=== PATIENT | female | born 1985 | race Caucasian/White ===

== ENCOUNTER → 2020-05-24 | Outpatient (CLI) | payer SELFPAY | LOC: M LABSMTC 10:06 | PROVIDERS: ATTEND Pediatrics | DX: Z11.52 Encounter for screening for COVID-19 (principal) ==

== ENCOUNTER → 2021-05-15 | Outpatient (CLI) | payer OTHER | LOC: M WHC 09:47 | PROVIDERS: ATTEND Family Medicine | DX: Z12.31 Encounter for screening mammogram for malignant neoplasm of breast (principal); Z80.3 Family history of malignant neoplasm of breast ==

== ENCOUNTER → 2022-08-01 | Outpatient (CLI) | payer OTHER | LOC: M WHC 12:29 | PROVIDERS: ATTEND Family Medicine | DX: Z12.31 Encounter for screening mammogram for malignant neoplasm of breast (principal); Z76.89 Persons encountering health services in other specified circumstances; Z80.3 Family history of malignant neoplasm of breast ==

== ENCOUNTER → 2023-01-06 | Outpatient (CLI) | payer OTHER | LOC: M PLAIMG 15:47 | PROVIDERS: ATTEND Internal Medicine | DX: M25.40 Effusion, unspecified joint (principal); M77.32 Calcaneal spur, left foot; M25.50 Pain in unspecified joint; L40.9 Psoriasis, unspecified; Z79.899 Other long term (current) drug therapy; Z88.1 Allergy status to other antibiotic agents | CPT/HCPCS: 36415; 73030; 73110; 73130; 73610; 73630; 81001; 82570; 84156; 85025; 85652; 85730; 86140; 86160; 86162; G0463; G2212 ==

== ENCOUNTER → 2023-04-11 | Outpatient (REF) | payer OTHER | LOC: M SFHCRHEU 12:30 | PROVIDERS: ATTEND Internal Medicine | DX: L40.50 Arthropathic psoriasis, unspecified (principal) ==

== ENCOUNTER → 2023-12-02 | Outpatient (CLI) | payer OTHER | LOC: M WHC 10:29 | PROVIDERS: ATTEND Family Medicine | DX: R92.2 Inconclusive mammogram (principal) ==

== ENCOUNTER → 2023-12-18 | Outpatient (CLI) | payer OTHER | LOC: M WHC 08:29 | PROVIDERS: ATTEND Family Medicine | DX: R92.8 Other abnormal and inconclusive findings on diagnostic imaging of breast (principal); R92.322 Mammographic fibroglandular density, left breast | CPT/HCPCS: 77065; G0279 ==

== ENCOUNTER → 2025-03-15 | Outpatient (REF) | payer OTHER ==
[2025-03-15 18:23] LABS: C REACTIVE PROTEIN QUANTITATIV 1.16 MG/DL (<1.0)
[2025-03-15 18:26] LABS: TOTAL 25(OH) VITAMIN D 68.2 NG/ML (20.0-100.0)
== END ==
LOC: M SFHCRHEU 11:53
PROVIDERS: ATTEND Internal Medicine
DX: L40.50 Arthropathic psoriasis, unspecified (principal); E55.9 Vitamin D deficiency, unspecified